=== PATIENT | male | born 1930 | race Caucasian/White ===

== ENCOUNTER → 2017-06-05 | Outpatient (CLI) | payer OTHER, MEDICARE | LOC: RAD 11:28 | DX: J40 Bronchitis, not specified as acute or chronic (principal) ==

== ENCOUNTER → 2019-04-19 | Outpatient (CLI) | payer OTHER, MEDICARE | LOC: RAD 09:14 | DX: J98.4 Other disorders of lung (principal); J84.10 Pulmonary fibrosis, unspecified; M47.814 Spondylosis without myelopathy or radiculopathy, thoracic region ==

== ENCOUNTER → 2019-12-05 | Outpatient (CLI) | payer OTHER, MEDICARE | LOC: RAD 08:46 | DX: J84.10 Pulmonary fibrosis, unspecified (principal); M47.814 Spondylosis without myelopathy or radiculopathy, thoracic region; M46.06 Spinal enthesopathy, lumbar region ==

== ENCOUNTER 2019-12-16 04:03 | Inpatient (IN) | payer OTHER, MEDICARE ==
[~2019-12-16] VITALS: Ht 172.7 cm; Wt 90.7 kg
[2019-12-16 04:04] VITALS: BP 130/76
[2019-12-16] MEDS ORDERED: COZAAR 25 MG TA25 M2 PO (04:45)
[2019-12-16] MEDS ORDERED: SINGULAIR 10 MG10 M1 PO (04:45)
[2019-12-16] MEDS ORDERED: DILTIAZEM 24HR240 M1 PO (04:46)
[2019-12-16] MEDS ORDERED: FUROSEMIDE 20 M20 M1 PO (04:46)
[2019-12-16] MEDS ORDERED: PLAVIX 75 MG TA75 MG PO (04:46)
[2019-12-16] MEDS ORDERED: GLIPIZIDE 10 MG10 MG PO (04:46)
[2019-12-16] MEDS ORDERED: CENTRUM SILVER1 EAC7 PO (04:47)
[2019-12-16] MEDS ORDERED: SENOKOT-S1 TA2 PO (04:47)
[2019-12-16] MEDS ORDERED: LIPITOR40 MG PO (04:48)
[2019-12-16] MEDS ORDERED: LEVEMIR FL100 UNIT/2 SUBQ ×2 (04:48→08:49)
[2019-12-16 05:04] LABS: ABSOLUTE NEUTROPHILS 11.3 thou/uL (1.4-8.2); BASOPHILS 0.8 % (0.0-2.0); EOSINOPHILS 2.3 % (0.0-3.0); HEMATOCRIT 41.1 % (42.0-52.0); HEMOGLOBIN 13.4 gm/dL (14.0-18.0); MCHC 32.6 g/dL (28.0-37.0); MONOCYTES 11.6 % (1.0-8.0); PLATELET COUNT 296 thou/uL (150-400); POLYS 72.3 % (36.0-66.0); RBC 4.47 mil/uL (4.50-6.00); WBC 15.6 thou/uL (4.0-11.0)
[2019-12-16 05:08] LABS: URINE BILIRUBIN NEGATIVE (Negative); URINE BLOOD NEGATIVE (Negative); URINE CLARITY CLEAR; URINE COLOR YELLOW; URINE GLUCOSE-RANDOM* NEGATIVE (Negative); URINE KETONES NEGATIVE (Negative); URINE LEUKOCYTES-REFLEX TRACE (Negative); URINE NITRITE-REFLEX NEGATIVE (Negative); URINE PROTEIN (DIPSTICK) NEGATIVE (Negative); URINE UROBILINOGEN 0.2 E.U./dl (0.2-1.0)
[2019-12-16 05:23] LABS: CALCIUM 8.9 mg/dL (8.5-10.1); CREATININE 2.4 mg/dL (0.7-1.3)
[2019-12-16 22:36] VITALS: BP 106/43
[2019-12-16 23:27] VITALS: BP 138/69
[2019-12-17 06:55] LABS: CALCIUM 8.2 mg/dL (8.5-10.1); CREATININE 1.8 mg/dL (0.7-1.3); POTASSIUM 4.5 mmol/L (3.5-5.1)
[2019-12-17 07:37] VITALS: BP 137/74
[2019-12-17 11:13] LABS: HEMATOCRIT 37.9 % (42.0-52.0); HEMOGLOBIN 12.2 gm/dL (14.0-18.0); MCH 29.9 pg (26.0-34.0); MCHC 32.2 g/dL (28.0-37.0); MCV 92.7 fL (80.0-100.0); PLATELET COUNT 256 thou/uL (150-400); RBC 4.09 mil/uL (4.50-6.00); RDW 13.9 % (10.5-14.5); WBC 13.3 thou/uL (4.0-11.0)
[2019-12-17 11:33] LABS: ALBUMIN 2.9 g/dL (3.4-5.0); DIRECT BILIRUBIN 0.2 mg/dL (<0.1-0.2); TOTAL BILIRUBIN 0.7 mg/dL (<0.1-1.0); TOTAL PROTEIN 6.3 g/dL (6.4-8.2); TROPONIN-I 0.13 ng/mL (<0.06)
[2019-12-17 13:53] LABS: ABSOLUTE NEUTROPHILS 9.2 thou/uL (1.4-8.2); METAMYELOCYTES 2 %
[2019-12-17 13:54] LABS: ANISOCYTOSIS 1+
[2019-12-17 15:30] VITALS: BP 121/61
[2019-12-17 20:05] VITALS: BP 125/58
[2019-12-18 05:18] LABS: HEMATOCRIT 33.9 % (42.0-52.0); HEMOGLOBIN 11.2 gm/dL (14.0-18.0); MCH 30.4 pg (26.0-34.0); MCV 92.3 fL (80.0-100.0); PLATELET COUNT 202 thou/uL (150-400); RBC 3.67 mil/uL (4.50-6.00); RDW 13.8 % (10.5-14.5); WBC 10.7 thou/uL (4.0-11.0)
[2019-12-18 05:47] LABS: CALCIUM 8.1 mg/dL (8.5-10.1); MAGNESIUM 1.8 mg/dL (1.8-2.4); PHOSPHORUS 4.1 mg/dL (2.5-4.9); POTASSIUM 4.1 mmol/L (3.5-5.1)
[2019-12-18 06:59] LABS: ABSOLUTE NEUTROPHILS 7.1 thou/uL (1.4-8.2); PLATELET ESTIMATE NORMAL
[2019-12-18 07:46] VITALS: BP 138/68
[2019-12-18 14:52] VITALS: BP 105/59
[2019-12-18 19:15] VITALS: BP 111/54
[2019-12-19] MEDS ORDERED: FLOMAX0.4 MG PO (07:31)
[2019-12-19] MEDS ORDERED: LANTUS SUBQ (07:31)
[2019-12-19 07:45] VITALS: BP 123/64
[2019-12-19 08:38] VITALS: BP 123/64
[2019-12-19 08:50] VITALS: BP 123/64
[2019-12-19 09:28] LABS: ABSOLUTE NEUTROPHILS 8.6 thou/uL (1.4-8.2); BASOPHILS 0.5 % (0.0-2.0); EOSINOPHILS 2.4 % (0.0-3.0); HEMOGLOBIN 11.5 gm/dL (14.0-18.0); LYMPHOCYTES 13.3 % (24.0-44.0); MCH 30.4 pg (26.0-34.0); MCHC 32.9 g/dL (28.0-37.0); MCV 92.3 fL (80.0-100.0); MONOCYTES 11.5 % (1.0-8.0); PLATELET COUNT 234 thou/uL (150-400); POLYS 72.3 % (36.0-66.0); RBC 3.79 mil/uL (4.50-6.00); RDW 13.7 % (10.5-14.5); WBC 11.9 thou/uL (4.0-11.0)
[2019-12-19 09:42] LABS: CALCIUM 8.5 mg/dL (8.5-10.1); CREATININE 2.3 mg/dL (0.7-1.3); MAGNESIUM 1.9 mg/dL (1.8-2.4); PHOSPHORUS 4.1 mg/dL (2.5-4.9); POTASSIUM 4.2 mmol/L (3.5-5.1)
== END 2019-12-19 10:09 | disposition home or self-care (01) | DRG 918 ==
LOC: ER 04:03 → EROBS 05:53 → 4N 05:53 → EROBS 13:00 → 4N 23:22 → ENTRNSPT 12-19 09:00 → EDTRNSPTSTS 12-19 09:02 → 4N 12-19 10:09
PROVIDERS: Emergency Medicine; Internal Medicine; ADMIT Family Medicine
DX: T50.901A Poisoning by unspecified drugs, medicaments and biological substances, accidental (unintentional), initial encounter (principal); N17.9 Acute kidney failure, unspecified; E11.649 Type 2 diabetes mellitus with hypoglycemia without coma; I10 Essential (primary) hypertension; E78.5 Hyperlipidemia, unspecified; J45.909 Unspecified asthma, uncomplicated; N40.0 Benign prostatic hyperplasia without lower urinary tract symptoms; Y92.89 Other specified places as the place of occurrence of the external cause; Z79.4 Long term (current) use of insulin; Z87.01 Personal history of pneumonia (recurrent); Z79.899 Other long term (current) drug therapy
CPT/HCPCS: 10790